=== PATIENT | female | born 1985 | race Caucasian/White ===

== ENCOUNTER 2023-03-28 10:30 | Emergency (ER) | payer OTHER ==
[~2023-03-28] VITALS: Ht 165.1 cm; Wt 100.7 kg
[2023-03-28 11:26] VITALS: BP 127/100
== END 2023-03-28 13:36 | disposition home or self-care (01) ==
LOC: ER 10:30
DX: S61.211A Laceration without foreign body of left index finger without damage to nail, initial encounter (principal); W29.3XXA Contact with powered garden and outdoor hand tools and machinery, initial encounter; Z88.5 Allergy status to narcotic agent; Z23 Encounter for immunization
CPT/HCPCS: 12002; 73140; 90471; 90715; 99282-25